=== PATIENT | female | born 2000 | race Caucasian/White ===

== ENCOUNTER 2021-04-05 00:57 | Emergency (ER) | payer OTHER ==
[2021-04-05 01:06] VITALS: BP 136/91; PULSE 104; TEMP 98.1; BMI 18.8
== END 2021-04-05 03:45 | disposition home or self-care (01) ==
LOC: FER 00:57
DX: S09.90XA Unspecified injury of head, initial encounter (principal); S16.1XXA Strain of muscle, fascia and tendon at neck level, initial encounter
CPT/HCPCS: 70450-TC; 72125-TC; 81025; 99284-25